=== PATIENT | female | born 1980 | race Caucasian/White ===

== ENCOUNTER → 2023-12-18 12:01 | Outpatient (REF) | payer BC, SELFPAY ==
[2023-12-18 15:28] LABS: % Basophils 0.8 % (0-2); % Eosinophils 6.6 % (0-6); % Immature Granulocytes 0.2 % (0-0.5); % Lymphocytes 29.8 % (20.5-51.1); % Monocytes 7.3 % (1.7-9.3); % Neutrophils 55.3 % (42.2-75.2); Absolute Eosinophils 0.4 10^3/uL (0-0.7); Absolute Lymphocytes 1.6 10^3/uL (1.2-3.4); Absolute Monocytes 0.4 10^3/uL (0.1-0.6); Absolute Neutrophils 2.9 10^3/uL (1.4-6.5); Hematocrit 42.4 % (37.0-47.0); Hemoglobin 14.6 g/dL (12.0-16.0); Mean Corp Hgb Conc. 34.4 g/dL (33.0-37.0); Mean Corpuscular Hgb 30.1 pg (27.0-31.0); Mean Corpuscular Volume 87.4 fL (81.0-99.0); Mean Platelet Volume 10.9 fL (7.4-10.4); Nucleated Red Blood Cells % 0 %; Platelet Count 271 10^3/uL (130-400); Red Blood Cell Count 4.85 10^6/uL (4.20-5.40); Red Cell Dist. Width 12.4 % (11.5-14.5); White Blood Cell Count 5.3 10^3/uL (4.8-10.8)
[2023-12-18 15:48] LABS: Blood Urea Nitrogen 10 mg/dl (7-17); Calcium 9.9 mg/dl (8.4-10.2); Carbon Dioxide 29 mmol/L (22-30); Chloride 103 mmol/L (98-107); Glucose 109 mg/dl (70-99); Iron 137 ug/dl (37-170); Potassium 4.5 mmol/L (3.5-5.1); Sodium 137 mmol/L (135-145); eGFR > 60.00
[2023-12-18 15:57] LABS: Percent Saturation 37 % (20-50); Total Iron Binding Capacity 364 ug/dl (265-497)
[2023-12-18 16:10] LABS: Prolactin 10.5 ng/ml (3.0-18.6)
[2023-12-18 16:24] LABS: TSH Reflex To Free T4 1.93 uIU/ml (0.47-4.68)
[2023-12-21 02:10] LABS: DHEA Sulfate 72 ug/dL (35-256)
[2023-12-21 07:41] LABS: Zinc 81.9 ug/dL (60.0-120.0)
[2023-12-23 13:41] LABS: Free Testosterone 3.5 pg/mL (1.1-5.8); Sex Hormone Binding Globulin 41 nmol/L (25-122); Total Testosterone,Female/Chil 24 ng/dL (9-55)
== END ==
LOC: HWLAB 12:01
PROVIDERS: ATTENDING PHYSICIAN Nurse Practitioner Adult Health
DX: D50.0 Iron deficiency anemia secondary to blood loss (chronic) (principal); L65.9 Nonscarring hair loss, unspecified; N92.1 Excessive and frequent menstruation with irregular cycle; I10 Essential (primary) hypertension
CPT/HCPCS: 36415; 80048; 82627; 82728; 83540; 83550; 84146; 84270; 84402; 84403; 84443; 84630; 85025

== ENCOUNTER → 2024-04-06 12:12 | Outpatient (REF) | payer BC, SELFPAY ==
[2024-04-06 15:20] LABS: ALT (SGPT) 21 U/L (0-35); AST (SGOT) 21 U/L (14-36); Albumin 4.6 g/dl (3.5-5.0); Alkaline Phosphatase 69 U/L (38-126); Blood Urea Nitrogen 11 mg/dl (7-17); Calcium 10.1 mg/dl (8.4-10.2); Carbon Dioxide 29 mmol/L (22-30); Chloride 99 mmol/L (98-107); Glucose 100 mg/dl (70-99); HDL Cholesterol 63 mg/dl; LDL Cholesterol, Calculated 95 mg/dl; Potassium 4.3 mmol/L (3.5-5.1); Sodium 137 mmol/L (135-145); Total Bilirubin 0.6 mg/dl (0.2-1.3); Total Cholesterol 176 mg/dl (50-199); Total Protein 7.3 g/dl (6.3-8.2); Triglyceride 91 mg/dl (10-149); Very Low Density Lipoprotein 18 mg/dl (0-30); eGFR > 60.00
[2024-04-06 15:35] LABS: Vitamin D, 25-OH*** 25.5 ng/mL (30-80)
[2024-04-07 10:09] LABS: Glycohemoglobin (HgbA1c) 6.4 % (4.0-5.6)
== END ==
LOC: HWWDC 12:12
PROVIDERS: ATTENDING PHYSICIAN Obstetrics & Gynecology Gynecology; FAMILY PHYSICIAN Nurse Practitioner Adult Health
DX: Z12.31 Encounter for screening mammogram for malignant neoplasm of breast (principal); R73.02 Impaired glucose tolerance (oral); E55.9 Vitamin D deficiency, unspecified; Z13.9 Encounter for screening, unspecified
CPT/HCPCS: 36415; 77063; 77067; 80053; 80061; 82306; 83036

== ENCOUNTER → 2024-07-08 07:04 | Outpatient (REF) | payer BC, SELFPAY ==
[2024-07-08 10:30] LABS: Glycohemoglobin (HgbA1c) 5.9 % (4.0-5.6)
== END ==
LOC: HWLAB 07:04
PROVIDERS: ATTENDING PHYSICIAN Nurse Practitioner Adult Health
DX: R73.03 Prediabetes (principal)
CPT/HCPCS: 36415; 83036

== ENCOUNTER → 2024-08-10 07:14 | Outpatient (REF) | payer BC, SELFPAY ==
[2024-08-10 09:39] LABS: % Basophils 0.7 % (0-2); % Eosinophils 7.1 % (0-6); % Immature Granulocytes 0.4 % (0-0.5); % Lymphocytes 32.1 % (20.5-51.1); % Monocytes 8.3 % (1.7-9.3); % Neutrophils 51.4 % (42.2-75.2); Absolute Basophils 0.1 10^3/uL (0-0.2); Absolute Eosinophils 0.5 10^3/uL (0-0.7); Absolute Lymphocytes 2.2 10^3/uL (1.2-3.4); Absolute Monocytes 0.6 10^3/uL (0.1-0.6); Absolute Neutrophils 3.5 10^3/uL (1.4-6.5); Hematocrit 41.3 % (37.0-47.0); Mean Corp Hgb Conc. 33.9 g/dL (33.0-37.0); Mean Corpuscular Hgb 28.5 pg (27.0-31.0); Mean Corpuscular Volume 83.9 fL (81.0-99.0); Mean Platelet Volume 10.7 fL (7.4-10.4); Nucleated Red Blood Cells % 0 %; Platelet Count 270 10^3/uL (130-400); Red Blood Cell Count 4.92 10^6/uL (4.20-5.40); Red Cell Dist. Width 13.2 % (11.5-14.5); White Blood Cell Count 6.8 10^3/uL (4.8-10.8)
[2024-08-10 09:59] LABS: Vitamin D, 25-OH*** 27.7 ng/mL (30-80)
[2024-08-10 10:25] LABS: ALT (SGPT) 19 U/L (0-35); AST (SGOT) 18 U/L (14-36); Albumin 4.5 g/dl (3.5-5.0); Alkaline Phosphatase 64 U/L (38-126); Blood Urea Nitrogen 16 mg/dl (7-17); Calcium 10.4 mg/dl (8.4-10.2); Carbon Dioxide 24 mmol/L (22-30); Chloride 100 mmol/L (98-107); Glucose 107 mg/dl (70-99); HDL Cholesterol 69 mg/dl; Iron 92 ug/dl (37-170); LDL Cholesterol, Calculated 128 mg/dl; Sodium 139 mmol/L (135-145); Total Bilirubin 0.5 mg/dl (0.2-1.3); Total Cholesterol 225 mg/dl (50-199); Total Protein 7.1 g/dl (6.3-8.2); Triglyceride 143 mg/dl (10-149); Very Low Density Lipoprotein 28 mg/dl (0-30); eGFR > 60.00
[2024-08-10 10:35] LABS: Percent Saturation 24 % (20-50); Total Iron Binding Capacity 381 ug/dl (265-497)
[2024-08-10 12:26] LABS: Glycohemoglobin (HgbA1c) 5.9 % (4.0-5.6)
[2024-08-10 13:39] LABS: Free T4 0.97 ng/dl (0.78-2.19)
[2024-08-10 14:12] LABS: Ferritin 8.3 ng/ml (6.24-137)
[2024-08-13 05:26] LABS: 24 Hour Urine Total Volume Random mL; Creatinine, Urine per Volume 50 mg/dL; Metanephrine, Urine 56 ug/L; Metanephrine/Creatinine Ratio 112 ug/g CRT (0-300); Normetanephrine, Urine 67 ug/L; Normetanephrine/Creatinine Rat 134 ug/g CRT (0-400); Urine Collection Length Random hr
== END ==
LOC: HWLAB 07:14
PROVIDERS: ATTENDING PHYSICIAN Nurse Practitioner Adult Health
DX: R61 Generalized hyperhidrosis (principal); Z86.2 Personal history of diseases of the blood and blood-forming organs and certain disorders involving the immune mechanism; I10 Essential (primary) hypertension; Z13.9 Encounter for screening, unspecified; R73.02 Impaired glucose tolerance (oral); E55.9 Vitamin D deficiency, unspecified
CPT/HCPCS: 36415; 80053; 80061; 82306; 82384; 82728; 83036; 83540; 83550; 83835; 84439; 84443; 85025

== ENCOUNTER → 2025-03-01 07:25 | Outpatient (REF) | payer BC, SELFPAY ==
[2025-03-01 09:55] LABS: Blood Urea Nitrogen 11 mg/dl (7-17); Calcium 9.8 mg/dl (8.4-10.2); Carbon Dioxide 28 mmol/L (22-30); Chloride 101 mmol/L (98-107); Glucose 115 mg/dl (70-99); Potassium 3.8 mmol/L (3.5-5.1); Sodium 140 mmol/L (135-145); eGFR > 60.00
[2025-03-01 10:25] LABS: TSH Reflex To Free T4 3.99 uIU/ml (0.47-4.68)
[2025-03-01 11:12] LABS: Vitamin D, 25-OH*** 21.2 ng/mL (30-80)
[2025-03-02 10:36] LABS: Intact PTH 56.4 pg/ml (13.6-85.8)
[2025-03-02 11:34] LABS: Thyroid Peroxidase Ab (TPO) 1.3 IU/mL (0.0-9.0)
== END ==
LOC: HWLAB 07:25
PROVIDERS: ATTENDING PHYSICIAN Nurse Practitioner Adult Health
DX: I10 Essential (primary) hypertension (principal); E83.52 Hypercalcemia; E03.8 Other specified hypothyroidism
CPT/HCPCS: 36415; 80048; 82306; 83970; 84443; 86376

== ENCOUNTER → 2025-08-02 09:54 | Outpatient (REF) | payer BC, SELFPAY | LOC: HWWDC 09:54 | PROVIDERS: ATTENDING PHYSICIAN Nurse Practitioner Adult Health | DX: Z12.31 Encounter for screening mammogram for malignant neoplasm of breast (principal) | CPT/HCPCS: 77063; 77067 ==

== ENCOUNTER → 2025-09-06 08:51 | Outpatient (REF) | payer BC, SELFPAY | LOC: WDC 08:51 | PROVIDERS: ATTENDING PHYSICIAN Obstetrics & Gynecology Gynecology; FAMILY PHYSICIAN Nurse Practitioner Adult Health | DX: R92.2 Inconclusive mammogram (principal); R92.333 Mammographic heterogeneous density, bilateral breasts | CPT/HCPCS: 76641 ==